=== PATIENT | male | born 1980 | race Caucasian/White ===

== ENCOUNTER 2021-12-11 13:59 | Emergency (ER) | payer OTHER, SELFPAY ==
[2021-12-11 14:08] VITALS: BP 120/75; PULSE 62; RESP 18; TEMP 36.8; O2SAT 100
--- NOTE | 2021-12-11 14:19 | ED.EYEPROB ---
HPI - Eye Problem General Chief complaint: Eye Problems Stated complaint: Lt Eye Irritation Time Seen by Provider: 12/11/21 14:12 Source: patient Mode of arrival: ambulatory Limitations: no limitations History of Present Illness HPI Narrative: Mr. Martinez is a 41-year-old male patient presenting to clinic today with complaints of left eye injury/pain. He reports he was out doing yard work when he got poked by a small stick in the left eye. He reports that the step broke off and is concerned that there may be some part of the stick in his eye. States pain is to the upper eye/eyelid. He reports that this happened this morning and his eye has been watering and painful ever since. He did irrigate his eye out with a bottle of water. He denies any loss of vision or blurry vision to the left eye. Visual acuity obtained Related Data Allergies Allergy/AdvReac Type Severity Reaction Status Date / Time No Known Allergies Allergy Verified 12/11/21 14:00 Review of Systems Review of Systems: Pertinent positives per HPI. Patient denies any fever, chills, rash, headache, visual changes, dizziness, cough, runny nose, sore throat, shortness of breath, chest pain, palpitations, nausea, vomiting, diarrhea, constipation, abdominal pain, or any urinary issues. [facility] Social History Social History Smoking status: Never smoker Alcohol intake: current Comments At the time of my signature, I reviewed and agree with the nursing past medical, surgical, social, and family history. There is no relevant family history pertinent to the patient complaint. Exam Narrative: General: Well-developed, well nourished, in no apparent distress Head: Normocephalic, atraumatic Eyes: Pupils equally round and reactive to light bilaterally, EOM intact, right sclera and conjunctive clear, left sclera is injected and mild redness of the conjunctiva, watery discharge, right lids normal, left upper lid mildly swollen, no abrasion or scratch noted to the external eye, Ferrell lamp exam performed and no sign of corneal abrasion or foreign body in the left eye. Ears: TMs intact and clear, ear canals clear, no drainage, grossly hearing normal. Nose: Nares patent, no discharge, no inflammation, no sinus tenderness. Mouth: Oropharynx without lesions or masses, good dentition, MMM. Neck: Supple, trachea midline, no enlargement of anterior or posterior cervical nodes, no thyroid masses or goiter palpable. Cardio: Regular rate and rhythm, s1 and s2 normal, no murmur appreciated. Resp: Clear to auscultation bilaterally anteriorly and posteriorly, no rhonchi, rales, wheezing or rubs Course Course Emergency Course: Portions of this record may have been created with voice recognition software. Level of Care: Express Care Visit Vital Signs Vital signs: Vital Signs Temperature 36.8 C 12/11/21 14:08 Pulse Rate 62 12/11/21 14:08 Respiratory Rate 18 12/11/21 14:08 Blood Pressure 120/75 12/11/21 14:08 Pulse Oximetry 100 12/11/21 14:08 Oxygen Delivery Room Air 12/11/21 14:08 Temperature 36.8 C 12/11/21 14:08 Pulse Rate 62 12/11/21 14:08 Respiratory Rate 18 12/11/21 14:08 Blood Pressure 120/75 12/11/21 14:08 Pulse Oximetry 100 12/11/21 14:08 Oxygen Delivery Room Air 12/11/21 14:08 Vital signs reviewed Procedures Other Procedure Procedure 1: Other Procedure: 2 drops of topical anesthetic (tetracaine) instilled into the left eye with good anesthesia. Fluorescein stain of the left eye was performed without uptake of dye. No epithelial defect was noted. NO FB, ulcer or dendritic lesions. Left upper and lower lid was everted and no FB or lesions were noted. No Joyce sign. Normal saline irrigation eye solution was performed and the patient tolerated the procedure well, no adverse reaction or complications. Noted visual acuity. MDM - Eye Problem [facility] Narrative Med
== END 2021-12-11 14:25 | disposition home or self-care (01) ==
PROVIDERS: Emergency Provider Nurse Practitioner Family; PCP Family Medicine Adolescent Medicine
DX: H57.12 Ocular pain, left eye (principal)
CPT/HCPCS: 99213; A9270; G0463

== ENCOUNTER 2024-04-20 09:30 | Emergency (ER) | payer OTHER, SELFPAY ==
--- OUTSIDE RECORDS SUMMARY | 2024-04-20 09:32 | XMS_ITS | Continuity of Care Document ---
Author Name [facility] Organization [facility] Care Team Providers Care Hr Director Name Role Phone [facility] Unavailable Unavailable Problems Combined list of problems from Department of Defense and Veterans Affairs facilities. It does not include entries that were removed or entered in error. Problem Status Onset Date Problem Type Date of Resolution Comments Source visit for: screening exam pulmonary tuberculosis Active Condition [facility] Need For Vaccination Typhoid Active Condition [facility] Diagnosis: ICD-10-CM F41.9 Anxiety disorder, unspecified Active Diagnosis [facility] Allergies, Adverse Reactions, Alerts Combined list of allergies from Department of Defense and Veterans Affairs facilities. It does not include entries that were removed or entered in error. Substance Category Reaction Severity Reaction type Status Date Reported Comments Source OTHER Drug allergy (disorder) Unknown [facility] Immunizations Combined list of available immunizations from the Department of Defense and Veterans Affairs facilities. Immunization Series Date Given Administered By Site Reaction Lot Number CVX Code Drug Nut Process Helper Status Comments Source tuberculin skin test; purified protein derivative solution, intradermal 1 2008 Unknown, Provider 96 Transcribed (TRS) complet ed tuberculi n skin test; purified protein derivativ e solution, intraderm al DoD typhoid Vi capsular polysaccharid e vaccine 2 2008 Unknown, Provider 101 Transcribed (TRS) complet ed typhoid Vi capsular polysacch aride vaccine DoD influenza virus vaccine, split virus (incl. purified surface antigen)-reti red CODE 0 2005 UNK 15 [employer] (PWJ) complet ed influenza virus vaccine, split virus (incl. purified surface antigen)- retired CODE DoD typhoid vaccine, parenteral, other than acetone-kille d, dried 1 2005 UNKNOWN 41 Unknown (UNK) comple t ed typhoid vaccine, parentera l, other than acetone-k illed, dried DoD influenza virus vaccine, split virus (incl. purified surface antigen)-reti red CODE 0 2005 UNKNOWN 15 Unknown (UNK) comple t ed influenza virus vaccine, split virus (incl. purified surface antigen)- retired CODE DoD vaccinia (smallpox) vaccine 0 2004 [id number] Evan (WAL) complet ed vaccinia (smallpox ) vaccine DoD influenza virus vaccine, split virus (incl. purified surface antigen)-reti red CODE 0 2004 [id number] 15 Sanofi Pasteur (PMC) complet ed influenza virus vaccine, split virus (incl. purified surface antigen)- retired CODE DoD [place] Encephalitis Vaccine [place] 3 2002 UNKNOWN 39 Unknown (UNK) comple t ed [place] Encephali tis Vaccine [place] DoD influenza virus vaccine, split virus (incl. purified surface antigen)-reti red CODE 0 2002 UNKNOWN 15 Unknown (UNK) comple t ed influenza virus vaccine, split virus (incl. purified surface antigen)- retired CODE DoD [place] Encephalitis Vaccine [place] 3 2002 UNKNOWN 39 Unknown (UNK) comple t ed [place] Encephali tis Vaccine AR DoD [place] Encephalitis Vaccine [place] 3 2002 UNKNOWN 39 Unknown (UNK) comple t ed [place] Encephali tis Vaccine [facility] [place] vaccine, parenteral, other than acetone-kille d, dried 1 2002 UNKNOWN 41 Unknown (UNK) comple t ed typhoid vaccine, parentera l, other than acetone-k illed, dried DoD hepatitis A and hepatitis B vaccine 3 2002 UNKNOWN 104 Unknown (UNK) comple t ed hepatitis A and hepatitis B vaccine [facility] tetanus and diphtheria toxoids, adsorbed, preservative free, for adult use (2 Lf of tetanus toxoid and 2 Lf of diphtheria toxoid) 1 2002 [id number] 09 Other (OTH) complet ed tetanus and diphtheri a toxoids, adsorbed, preservat eleazar free, for adult use (2 Lf of tetanus toxoid and 2 Lf of diphtheri a toxoid) [facility] poliovirus vaccine, inactivated 1 2002 [id number] 10 Other (OTH) complet ed polioviru s vaccine, inactivat ed DoD yellow fever vaccine 1 2002 [id number] Other (OTH) complet ed yellow fever vaccine DoD hepatitis A and hepatitis B vaccine 3 2002 UNKNOWN 104 Unknown (UNK) comple t ed hepatitis A and hepatitis B vaccine [facility] measles, mumps and rubella virus vaccine 1 2001 [id number] Merck (MSD) complet ed measles, mumps and rubella virus vaccine DoD influenza virus vaccine, split virus (incl. purified surface antigen)-reti red CODE 0 2001 [id number] 15 Other (OTH) complet ed influenza virus vaccine, split virus (incl. purified surface antigen)- retired CODE DoD meningococcal polysaccharid e vaccine (MPSV4) 1 2001 [id number] Merck (MSD) complet ed meningoco ccal polysacch aride vaccine (MPSV4) DoD pneumococcal polysaccharid e vaccine, 23 valent 1 2001 [id number] Merck (MSD) complet ed pneumococ osvaldo polysacch aride vaccine, 23 valent DoD hepatitis A and hepatitis B vaccine 3 2001 UNKNOWN 104 Unknown (UNK) comple t ed hepatitis A and hepatitis B vaccine DoD Encounters Combined list of: 1) Encounters from Department of Veterans Affairs facilities going back up to thelast 18 months. 2) Encounters from the Department of Defense facilities going back up to 280 months. Location Location Details Encounter Type Encounter Number Reason For Visit Attending Provider ADM Date DC Date Status Disposition Source [facility](Imm unization [facility]) OUTPATIENT [id number] PT REQUEST ED IMMUNIZ ATIONS. VANE GONZALEZ 07/09 Released w/o Limitations [facility](I mmuniza tion [facility]) [facility] Outpatient Encounter [id number] 1 05/13 [facility] Outpatient Encounter [id number] Diagnos is: ICD-10- CM F41.9 Anxiety disorde r, unspeci fied
Samm PABON 02/27 [facility] Outpatient Encounter [id number] SANDRA RAMIREZ 02/28 [facility] Outpatient Encounter [id number] 03/04 [facility] Procedures Combined list of: 1) Procedures from Department of Veterans Affairs facilities going back up to thelast 18 months, not all [place] non-surgical procedures are included; 2) All procedures from the Department of Defense facilities. Procedure Procedure Type Code Date Perfomer Comments Sourc e SKIN TEST; TUBERCULOSIS, INTRADERMAL 07/09/2008 [facility] PURE TONE AUDIOMETRY (THRESHOLD); AIR ONLY 03/06/2002 DoD AZITHROMYCIN DIHYDRATE, ORAL, CAPSULES/POWDER, 1 GRAM 11/26/2004 [facility] WET ROSCOE, INCLUDING PREPARATIONS OF VAGINAL, CERVICAL OR SKIN SPECIMENS 12/16/2003 DoD PURE TONE AUDIOMETRY (THRESHOLD); AIR ONLY 01/13/2006 [facility] BEHAVIORAL HEALTH PREVENTION EDUCATION SERVICE (DELIVERY OF SERVICES WITH TARGET POPULATION TO AFFECT KNOWLEDGE, ATTITUDE AND/OR BEHAVIOR) 01/06/2005 [facility] BEHAVIORAL HEALTH PREVENTION EDUCATION SERVICE (DELIVERY OF SERVICES WITH TARGET POPULATION TO AFFECT KNOWLEDGE, ATTITUDE AND/OR BEHAVIOR) 01/05/2005 [facility] BEHAVIORAL HEALTH PREVENTION EDUCATION SERVICE (DELIVERY OF SERVICES WITH TARGET POPULATION TO AFFECT KNOWLEDGE, ATTITUDE AND/OR BEHAVIOR) 01/04/2005 [facility] BEHAVIORAL HEALTH PREVENTION EDUCATION SERVICE (DELIVERY OF SERVICES WITH TARGET POPULATION TO AFFECT KNOWLEDGE, ATTITUDE AND/OR BEHAVIOR) 01/03/2005 DoD ALCOHOL (ETHANOL); BREATH 12/29/2004 DoD ALCOHOL (ETHANOL); BREATH 05/06/2004 [facility] Skin Test Anergy Tuberculin Intradermal Skin Test Anergy Tuberculin Intradermal 53160 07/09/2008 VANE GONZALEZ [facility] Typhoid Vaccine Vi Capsular Polysaccharide, For Intramus Use Typhoid Vaccine Vi Capsular Polysaccharide, For Intramus Use 97743 07/09/2008 VANE GONZALEZ DoD Immunization Administration By Injection, One Vaccine Immunization Administration By Injection, One Vaccine 36611 07/09/2008 VANE GONZALEZ DoD Social History Combined list of available smoking, tobacco, and other social history from Department of Defense and Veterans Affairs facilities. Social History Type Response Date Comment Sour e This section is an empty social history section. [facility] Plan of Care List of future care activities from Department of Veterans Affairs facilities. Additional future care activities may be listed in the Assessment and Plan section. Date/Time Care Activity Care Activity Detail Facili ty 05/09/2024 AMBULATORY - PSYCHIATRY AMBULATORY - PSYC HIATRY [facility]
--- OUTSIDE RECORDS SUMMARY | 2024-04-20 09:32 | XMS_ITS | Referral Summary ---
Author Organization [facility] Address [address] [place] [address] Care Team Providers Care Jack Spooler Tender Name Role Phone Micheal Brenner MD Primary Care Prov ider Medications No known medications Active Problems No known active problems Social History Tobacco Use Types Packs/Day Years Used Date Smoking Tobacco: Never Assessed Sex and Gender Information Value Date Recorded Sex Assigned at Not on file Legal Sex Male 1:20 PM CDT Gender Identity Not on file Sexual Orientation Not on file Plan of Treatment Not on file Insurance CHOICE PLUS [facility] CHOICE PLUS Care Teams Jack Spooler Tender Relationship Specialty Start Date End Date Micheal Brenner MD [address] [place] [address] PCP - General Family Medicine 01/16/23
--- OUTSIDE RECORDS SUMMARY | 2024-04-20 09:32 | XMS_ITS | Clinical Summary ---
Author Organization [facility] Address [address] [place] [address]. [place] [address] [place] [address] Care Team Providers Care Assembly Loader Name Role Phone Unavailable Primary Care Provider Unavailabl e Social History Tobacco Use Types Packs/Day Years Used Date Smoking Tobacco: Never Assessed Sex and Gender Information Value Date Recorded Sex Assigned at Not on file Legal Sex Male 8:27 AM CDT Gender Identity Not on file Sexual Orientation Not on file Plan of Treatment Health Maintenance Due Date Last Done Comments Annual Physical 09/08/1983 Hepatitis C 1998 DTaP, Tdap and Td Vaccines ( 1 - Tdap) 09/08/1999 Hepatitis B Vaccines (1 of 3 - 19+ 3-dose series) 09/08/1999 COVID-19 Vaccine (2023-2 5 season) 2023 Influenza Adult (#1) 2023 HPV Vaccines Aged Out No longer eligi ble based on patient's age to complete this topic Meningococcal B Vaccine Aged Out No l onger eligible based on patient's age to complete this topic Meningococcal Vaccine Aged Out No mercedes ambre eligible based on patient's age to complete this topic Pneumococcal Vaccine: Pediat rics (0 to 5 Years) and At-Risk Patients (6 to 64 Years) Aged Out No longer eligible b ased on patient's age to complete this topic RSV Immunizations Under 20 Months Aged Out No longer eligible based on patient's age to complete this [place] [id number] [employer]
--- OUTSIDE RECORDS SUMMARY | 2024-04-20 09:32 | XMS_ITS | Clinical Summary ---
Author Organization [facility] Address [address] [place] [address] Care Team Providers Care Channel Lip Stiffener Insoles Name Role Phone Micheal Brenner MD Primary Care Prov ider Medications No known medications Active Problems No known active problems Social History Tobacco Use Types Packs/Day Years Used Date Smoking Tobacco: Never Assessed Sex and Gender Information Value Date Recorded Sex Assigned at Not on file Legal Sex Male 1:20 PM CDT Gender Identity Not on file Sexual Orientation Not on file Obstetrics History Plan of Treatment Health Maintenance Due Date Last Done Comments Depression Screening 1980 Hepatitis C Screening 1980 DTaP/Tdap/Td Vaccine (1 - Tdap) 09/08/1991 Varicella Vaccines (1 of 2 - 13+ 2-dose series) 1993 Hepatitis B Screening 1998 Regular Well Visit/Exam 18-64 1998 Covid-19 Vaccine (2 - 2023-2 5 season) 2023 05/28/2020 Influenza Vaccine (#1) 2023 HPV Vaccines Aged Out No longer eligi ble based on patient's age to complete this topic Pneumococcal vaccine <65 Aged Out No longer eligible based on patient's age to complete this topic Insurance [facility] CHOICE PLUS [place] [id number] CHOICE PLUS [place] [id number] Care Teams Channel Lip Stiffener Insoles Relationship Specialty Start Date End Date Micheal Brenner MD [address] [place] [address] PCP - General Family Medicine 01/16/23
--- OUTSIDE RECORDS SUMMARY | 2024-04-20 09:36 | XMS_ITS | Continuity of Care Document ---
Author Name [facility] Organization [facility] Care Team Providers Care Residential Coordinator Name Role Phone [facility] Unavailable Unavailable Problems Combined list of problems from Department of Defense and Veterans Affairs facilities. It does not include entries that were removed or entered in error. Problem Status Onset Date Problem Type Date of Resolution Comments Source visit for: screening exam pulmonary tuberculosis Active Condition [facility] Need For Vaccination Typhoid Active Condition [facility] Diagnosis: ICD-10-CM F41.9 Anxiety disorder, unspecified Active Diagnosis [facility] Allergies, Adverse Reactions, Alerts Combined list of allergies from Department of Defense and Veterans Affairs facilities. It does not include entries that were removed or entered in error. Substance Category Reaction Severity Reaction type Status Date Reported Comments Source OTHER Drug allergy [facility]disorder) [facility] Combined list of available immunizations from the Department of Defense and Veterans Affairs facilities. Immunization Series Date Given Administered By Site Reaction Lot Number CVX Code Drug Composition Instructor Status Comments Source tuberculin skin test; purified [...] CODE DoD vaccinia (smallpox) vaccine 0 2004 [id number] Evan (WAL) complet ed vaccinia (smallpox ) vaccine DoD influenza virus vaccine, split virus (incl. purified surface antigen)-reti red CODE 0 2004 [id number] Sanofi Pasteur (PMC) complet ed influenza virus vaccine, split virus (incl. purified surface antigen)- retired CODE DoD [place] Encephalitis Vaccine [place] 3 2002 UNKNOWN 39 Unknown (UNK) comple t ed [place] Encephali tis Vaccine [place] DoD influenza virus vaccine, split virus (incl. purified surface antigen)-reti red CODE 0 2002 UNKNOWN 15 Unknown (UNK) comple t ed influenza virus vaccine, split virus (incl. purified surface antigen)- retired CODE DoD [place] Encephalitis Vaccine [place] 3 2002 UNKNOWN 39 Unknown (UNK) comple t ed [place] Encephali tis Vaccine [place] DoD [place] Encephalitis Vaccine [place] 3 2002 UNKNOWN 39 Unknown (UNK) comple t ed [place] Encephali tis Vaccine [facility] typhoid vaccine, parenteral, other than acetone-kille d, dried 1 2002 UNKNOWN 41 Unknown (UNK) comple t ed typhoid vaccine, parentera l, other than acetone-k illed, dried DoD hepatitis A and hepatitis B vaccine 3 2002 UNKNOWN 104 Unknown (UNK) comple t ed hepatitis A and hepatitis B vaccine [facility] tetanus and diphtheria toxoids, adsorbed, preservative free, for adult use (2 Lf of tetanus toxoid and 2 Lf of diphtheria toxoid) 1 2002 [id number] 09 Other (OTH) complet ed tetanus and diphtheri a toxoids, adsorbed, preservat eleazar free, for adult use (2 Lf of tetanus toxoid and 2 Lf of diphtheri a toxoid) [facility] poliovirus vaccine, inactivated 1 2002 [id number] 10 Other (OTH) complet ed polioviru s vaccine, inactivat ed DoD yellow fever vaccine 1 2002 [id number] Other (OTH) complet ed yellow fever vaccine DoD hepatitis A and hepatitis B vaccine 3 2002 UNKNOWN 104 Unknown (UNK) comple t ed hepatitis A and hepatitis B vaccine [facility] measles, mumps and rubella virus vaccine 1 2001 [id number] 03 Merck (MSD) complet ed measles, mumps and rubella virus vaccine DoD influenza virus vaccine, split virus (incl. purified surface antigen)-reti red CODE 0 2001 [id number] 15 Other (OTH) complet ed influenza virus [...] ADM Date DC Date Status Disposition Source [facility](Imm unization [facility]) OUTPATIENT [id number] PT REQUEST ED IMMUNIZ ATIONS. VANE GONZALEZ 07/09 Released w/o Limitations [facility](I mmuniza tion [facility]) [facility] Outpatient Encounter [id number] 1 05/13 [facility] Outpatient Encounter [id number] Diagnos is: ICD-10- CM F41.9 Anxiety disorde r, unspeci fied
Samm PABON 02/27 [facility] Outpatient Encounter [id number] SANDRA RAMIREZ 02/28 [facility] Outpatient Encounter [id number] 03/04 [facility] Procedures Combined list of: 1) Procedures from Department of Veterans Affairs facilities going back up to thelast 18 months, not all [place] non-surgical procedures are included; 2) All procedures from the Department of Defense facilities. Procedure Procedure Type Code Date Perfomer Comments Sourc e SKIN TEST; TUBERCULOSIS, INTRADERMAL 07/09/2008 [facility] PURE TONE AUDIOMETRY (THRESHOLD); AIR ONLY 03/06/2002 DoD AZITHROMYCIN DIHYDRATE, ORAL, CAPSULES/POWDER, 1 GRAM 11/26/2004 [facility] WET ROSCOE, INCLUDING PREPARATIONS OF VAGINAL, CERVICAL OR SKIN SPECIMENS 12/16/2003 DoD PURE TONE AUDIOMETRY (THRESHOLD); AIR ONLY 01/13/2006 [facility] BEHAVIORAL HEALTH PREVENTION EDUCATION SERVICE (DELIVERY OF SERVICES WITH TARGET POPULATION TO AFFECT KNOWLEDGE, ATTITUDE AND/OR BEHAVIOR) 01/06/2005 [facility] BEHAVIORAL HEALTH PREVENTION EDUCATION SERVICE (DELIVERY OF SERVICES WITH TARGET POPULATION TO AFFECT KNOWLEDGE, ATTITUDE AND/OR BEHAVIOR) 01/05/2005 [facility] BEHAVIORAL HEALTH PREVENTION EDUCATION SERVICE (DELIVERY OF SERVICES WITH TARGET POPULATION TO AFFECT KNOWLEDGE, ATTITUDE AND/OR BEHAVIOR) 01/04/2005 [facility] BEHAVIORAL HEALTH PREVENTION EDUCATION SERVICE (DELIVERY OF SERVICES WITH TARGET POPULATION TO AFFECT KNOWLEDGE, ATTITUDE AND/OR BEHAVIOR) 01/03/2005 DoD ALCOHOL (ETHANOL); BREATH 12/29/2004 DoD ALCOHOL (ETHANOL); BREATH 05/06/2004 [facility] Skin Test Anergy Tuberculin Intradermal Skin Test Anergy Tuberculin Intradermal 17794 07/09/2008 VANE GONZALEZ [facility] Typhoid Vaccine Vi Capsular Polysaccharide, For Intramus Use Typhoid Vaccine Vi Capsular Polysaccharide, For Intramus Use 93263 07/09/2008 VANE GONZALEZ DoD Immunization Administration By Injection, One Vaccine Immunization Administration By Injection, One Vaccine 89267 07/09/2008 VANE GONZALEZ DoD Social History Combined list of available smoking, tobacco, and other social history from Department of Defense and Veterans Affairs facilities. Social History Type Response Date Comment Sour e This section is an empty social history section. [facility] Plan of Care List of future care activities from Department of Veterans Affairs facilities. Additional future care activities may be listed in the Assessment and Plan section. Date/Time Care Activity Care Activity Detail Facili ty 05/09/2024 AMBULATORY - PSYCHIATRY AMBULATORY - PSYC HIATRY [facility]
[2024-04-20 09:52] VITALS: BP 134/76; PULSE 99; RESP 18; TEMP 37.4; O2SAT 99
--- NOTE | 2024-04-20 10:51 | ED_ITS ---
HPI - General Adult General Chief complaint: Upper Respiratory Infection Stated complaint: cough/fever Time Seen by Provider: 04/20/24 10:51 Source: patient Mode of arrival: ambulatory Limitations: no limitations History of Present Illness HPI narrative: 43-year-old male patient presents to the [facility] with complaints of cough, low-grade fever and cold-like symptoms for the past 2-3 days. Patient states he has been running about 99 fever at times. Patient states he has a lot of congestion, runny nose, coughing sore throat. Denies any chest pain at rest but states he has chest does hurt when he coughs. Denies any abdominal pain, nausea, vomiting or diarrhea. Patient states he has been taking [id number] airborne. Related Data Home Medications ?Medication ?Instructions ?Recorded ?Confirmed ?Last Taken ?Type No Home Medications 04/20/24 04/20/24 Unknown History Allergies Allergy/AdvReac Type Severity Reaction Status Date / Time No Known Allergies Allergy Verified 04/20/24 10:21 Review of Systems Review of Systems: CONSTITUTIONAL: Positive low-grade fever, denies chills, or sweats. EYES: Denies visual changes, redness, or discharge. ENT: positive rhinorrhea, congestion, sore throat, denies otalgia. CARDIOVASCULAR: positive chest pain with coughing, denies palpitations, or edema. RESPIRATORY: positive cough denies dyspnea. GASTROINTESTINAL: Denies abdominal pain, nausea, vomiting, or diarrhea. GENITOURINARY: Denies dysuria or hematuria. SKIN: Denies rash or itching. MUSCULOSKELETAL: Denies back pain, joint pain, or myalgia. NEUROLOGIC: Denies headache, numbness, or weakness. PSYCHIATRIC: Denies anxiety or depression. PMFSH Social History Social History Smoking status: Never smoker Alcohol intake: current Comments At the time of my signature I agree with nursing past medical history, surgical, social, and family history. There is no relevant family history pertinent to the presenting complaint. Exam Narrative: GENERAL: Well-appearing, well-nourished, and in no acute distress. HEAD: Normocephalic, atraumatic. EYES: PERRLA and EOMI. ENT: Nares with erythema edema noted bilaterally, clear rhinorrhea or epistaxis. Mucous membranes moist. posterior pharynx with no erythema, tonsillar enlargement, exudates or lesions present. Bilateral TMs are clear no erythema foreign bodies the canal. NECK: Supple. No lymphadenopathy CHEST: Clear to auscultation. No respiratory distress. HEART: Regular rate and rhythm. No murmur heard. Normal peripheral pulses. ABDOMEN: Soft, nontender, nondistended, normal active bowel sounds. EXTREMITIES: Normal range of motion. No edema. SKIN: Warm, dry, no rash. NEURO: No focal deficits. Alert and oriented x3. Course Course Level of Care: Express Care Visit Vital Signs Vital signs: Vital Signs Temperature 37.4 C 04/20/24 09:52 Pulse Rate 99 04/20/24 09:52 Respiratory Rate 18 04/20/24 09:52 Blood Pressure 134/76 04/20/24 09:52 Pulse Oximetry 99 04/20/24 09:52 Oxygen Delivery Room Air 04/20/24 09:52 Temperature 37.4 C 04/20/24 09:52 Pulse Rate 99 04/20/24 09:52 Respiratory Rate 18 04/20/24 09:52 Blood Pressure 134/76 04/20/24 09:52 Pulse Oximetry 99 04/20/24 09:52 Oxygen Delivery Room Air 04/20/24 09:52 Vital signs reviewed. Medical Decision Making MDM Narrative Medical decision making narrative: Notified patient that he is negative today for influenza and COVID. Discussed with him he most likely has some type of upper respiratory virus. Discussed with patient continue taking [id number] medications, Tylenol and ibuprofen as needed for fevers body aches or chills. Increase his fluid intake and lots of rest. 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 Patient verbalized understanding denies any other questions or concerns at this time. Differential Diagnosis Differential Diagnosis: Differential diagnosis: Allergic rhinitis, chronic sinusitis, tonsillitis, acute sinusitis, infectious mononucleosis, seasonal influenza, pertussis, diphtheria, meningococcal disease, viral syndrome, viral bronchitis, RSV, COVID- 19 Vital Signs Vital Signs: Vital Signs Temperature 37.4 C 04/20/24 09:52 Pulse Rate 99 04/20/24 09:52 Respiratory Rate 18 04/20/24 09:52 Blood Pressure 134/76 04/20/24 09:52 Pulse Oximetry 99 04/20/24 09:52 Oxygen Delivery Room Air 04/20/24 09:52 Temperature 37.4 C 04/20/24 09:52 Pulse Rate 99 04/20/24 09:52 Respiratory Rate 18 04/20/24 09:52 Blood Pressure 134/76 04/20/24 09:52 Pulse Oximetry 99 04/20/24 09:52 Oxygen Delivery Room Air 04/20/24 09:52 Critical Care Time Critical Care Time Critical Care Time: No Discharge Plan Discharge Clinical Impression: Viral URI with cough Patient Disposition: Home, Self-Care Condition: Stable Instructions: Antibiotic Form, Viral Syndrome (ED) Additional Instructions: Viral illness may last between 7-12days; antibiotic is NOT recommended at this time. Recommend antihistamine such as Benadryl at night time and Claritin/Zyrtec/Melissa during the day Cough syrup may cause drowsiness; avoid driving or take it at night time. Also, recommend symptomatic treatment includes: rest, fluids, and increase humidity of the air at home. Recommend Acetaminophen or nonsteroidal anti-inflammatory agents (NSAIDs) as directed in the bottle to reduce fever and/pain/headache. Avoid smoking/second-hand smoke. Limit visits to areas with large crowds. Please schedule a follow-up visit with your personal physician for further evaluation and treatment within 3-5days. Including recheck and discussion of your blood pressure. If your symptoms persist, change or worsen significantly before you can contact your personal physician then please, without delay, go to the emergency department for further evaluation. Patient Language: Liberian Prescriptions: No Action No Home Medications Follow-up/Referrals: Micheal Brenner MD [Primary Care Provider] - Time of Disposition: 10:57
[2024-04-20 11:05] LABS: EDCOVIDSCREEN Negative (Negative); EDINFLUASCREEN Negative (Negative); EDINFLUBSCREEN Negative (Negative)
== END 2024-04-20 11:00 | disposition home or self-care (01) ==
PROVIDERS: Emergency Provider Nurse Practitioner Family; PCP Family Medicine Adolescent Medicine
DX: J06.9 Acute upper respiratory infection, unspecified (principal); R05.9 Cough, unspecified; Z20.822 Contact with and (suspected) exposure to COVID-19
CPT/HCPCS: 87426; 87804; 99212; G0463